=== PATIENT | female | born 1950 | race Caucasian/White ===

== ENCOUNTER 2021-05-23 14:47 | Inpatient (IN) | payer BC, MEDICARE, SELFPAY ==
[2021-05-23] VITALS (11 sets, daily range): BP systolic 132–157; BP diastolic 65–101; PULSE 95–122; RESP 18–32; TEMP 36.9–37.2; O2SAT 92–98; BMI 29.0; BMI 28.3
--- NOTE | 2021-05-23 15:07 | EKG12_ITS ---
Test Reason : Blood Pressure : / mmHG Vent. Rate : 105 BPM Atrial Rate : 105 BPM P-R Int : 154 ms QRS Dur : 096 ms QT Int : 348 ms P-R-T Axes : 024 012 029 degrees QTc Int : 459 ms Sinus tachycardia Septal infarct , age undetermined Abnormal ECG Confirmed by CATALINA FONG, EDILIA ([id number]), metropolitan editor JESSE MCKEON ([id number]) on 05/24/2021 11:40:37 AM Referred By: ARGELIA/CASS Confirmed By:EDILIA ARNOLD MD
--- NOTE | 2021-05-23 15:08 | EDS_ITS ---
HPI History of Present Illness Chief Complaint: Weakness Informant: patient Narrative Narrative: Patient states that since Sunday morning she has felt overall weak. She has no energy. Her appetite is down but she denies nausea vomiting or diarrhea. She states she is afraid to eat but she really cannot state why. She is coughing and bringing up some clear sputum. No blood. No chest pain. She states she is having some shortness of breath. Her big complaints are the significant decrease in energy and some mild dyspnea. No fevers or chills. She has more malaise than myalgias. She has no known exposure to Covid but also has not been vaccinated. She denies any medical conditions, medications or allergies. She lives alone at home. PFSH PFS Medical History no medical history Allergy/AdvReac Type Severity Reaction Status Date / Time No Known Allergies Allergy Verified 05/23/21 16:46 Surgical History no surgical history Social History Smoking Status: Never smoker ROS ROS ED Constitutional Constitutional ED: Reports other Details: Malaise. ; Denies fever(s) or weight loss Eyes Eyes: Denies change in vision ENT ENT ED: Reports rhinorrhea; Denies sore throat Cardiovascular Cardiovascular: Denies chest pain or palpitations Respiratory/Chest Respiratory/Chest: Reports cough, dyspnea, sputum and other Details: Clear sputum only. Gastrointestinal Gastrointestinal: Denies abdominal pain, diarrhea, nausea or vomiting Genitourinary Genitourinary ED: Denies dysuria Musculoskeletal Musculoskeletal: Denies myalgias Integumentary Denies rash Neurologic Neurologic: Denies headache(s) Endocrine Endocrinology: Denies polydipsia or polyuria Allergic/Immunologic Allergic/Immunologic ED: Denies mouth swelling or urticaria EXAM Physical Exam Const Vital Signs: 05/23/21 14:49 05/23/21 14:53 05/23/21 14:54 Temperature 98.6 F 98.6 F Temperature Source Oral Oral Pulse Rate 118 H 117 H Respiratory Rate 23 H 28 H Respiratory Effort Non-Labored Short of Breath Respiratory Pattern Tachypnea Blood Pressure 157/101 H 157/101 H Blood Pressure Mean 119 119 Pulse Ox 92 95 Oxygen Delivery Method Room Air Nasal Cannula Oxygen Flow Rate (L/min) 2 05/23/21 16:18 05/23/21 17:18 05/23/21 18:12 Temperature 98.7 F 98.8 F 98.9 F Temperature Source Temporal Temporal Temporal Pulse Rate 97 101 H 122 H Respiratory Rate 32 H 30 H 29 H Respiratory Effort Respiratory Pattern Blood Pressure 133/82 H 146/65 H 147/90 H Blood Pressure Mean 99 92 109 Pulse Ox 96 95 95 Oxygen Delivery Method Nasal Cannula Nasal Cannula Nasal Cannula Oxygen Flow Rate (L/min) 2 3 05/23/21 19:44 05/23/21 20:07 Temperature 98.9 F 98.9 F Temperature Source Oral Oral Pulse Rate 119 H 122 H Respiratory Rate 20 H 27 H Respiratory Effort Respiratory Pattern Blood Pressure 145/90 H 149/101 H Blood Pressure Mean 108 117 Pulse Ox 98 94 Oxygen Delivery Method Nasal Cannula Nasal Cannula Oxygen Flow Rate (L/min) 2 2 Positive well nourished and well developed General Appearance ED: well developed and NAD; Negative for cyanotic, diaphoretic or pallor HEENT Reports dry mucous membranes; Denies moist mucous membranes Negative for trauma Mouth ED: Yes dry mucous membranes Mouth: dry mucous membranes Eyes General Eye ED: Negative for pale conjunctiva or scleral icterus Neck no JVD Chest Wall inspection of chest normal Resp normal respiratory effort and clear to auscultation bilaterally Resp Narrative: No pain with a deep breath. No coughing while I am in the room. Effort and Inspection: Negative for pain with movement Auscultation: Negative for rales, rhonchi or wheezes Cardio regular rhythm Rate: tachycardic GI normal to inspection, nondistended, normoactive bowel sounds and non-tender Palpation: soft Back/Spine no CVA tenderness Extremity normal to inspection General Extremety ED: Negative for edema or tenderness General Extremity: Negative for edema Neuro oriented x3 Sensorium / Orientation: alert Psych mental status grossly normal Skin no rashes or lesions noted and no wounds General Skin Exam: Negative for pallor MDM MDM MDM Narrative Medical decision making narrative: Patient's CBC shows no marked abnormalities. Electrolytes did show some mildly low potassium. Lactate was okay. Troponin was normal. Her chest x-ray showed some marked infiltrative process. We did do a CTA of her chest. This showed pulmonary embolus with the likely COVID pneumonia and likely pulmonary infarct. Patient was persistently tachycardic here. Because I am concerned she may have Covid, I did not want to give her a lot of fluids. Her rapid Covid is negative but she has symptoms consistent of it. We have sent a PCR which is pending. I have talked to hospitalist about admission as she does not meet discharge criteria for pulmonary embolus. Lab Data Attestation: I reviewed the patient's lab results. Labs: Laboratory Results - last 24 hr 05/23/21 05/23/21 05/23/21 15:00 15:00 15:10 WBC 10.1 RBC 4.65 Hgb 14.4 Hct 40.3 MCV 86.7 MCH 31.0 MCHC 35.7 RDW Std Deviation 39.0 RDW Coeff of Jose 12.3 Plt Count 419 MPV 9.0 Immature Gran % (Auto) 0.600 Neut % (Auto) 85.9 H Lymph % (Auto) 7.1 L [place] % (Auto) 6.1 Eos % (Auto) 0.1 Baso % (Auto) 0.2 Absolute Neuts (auto) 8.7 H Absolute Lymphs (auto) 0.72 L Nucleated RBC % 0 Sodium 141 Potassium 3.0 L Chloride 109 H Carbon Dioxide 26.0 Anion Gap 6 BUN 28 H Creatinine 0.82 Estim Creat Clear Calc 62.56 Est GFR (MDRD) Af Amer 88 Est GFR (MDRD) Non-Af 73 BUN/Creatinine Ratio 34.3 H Glucose 141 H Lactic Acid 1.4 Calcium 8.2 L Troponin I High Sens 10 Radiography Diagnostic Testing: Clinical Impression(s) from Imaging Studies Chest X-Ray 05/23/21 15:30 IMPRESSION: Bilateral pneumonia. Electronically Signed: Osmin Bustamante MD at 15:58 EST Reading Location ID and State: [id number] / [place] Tel , Service support , Chest CTA 05/23/21 16:41 IMPRESSION: 1. Positive for pulmonary embolism in the distal descending right pulmonary artery extending into multiple segmental branches with right lower lobe pulmonary infarct. 2. Bilateral pneumonia. Commonly reported imaging features of February 01 pneumonia are present. Other processes such as influenza pneumonia and organized pneumonia as can be seen in drug toxicity and connective tissue disease can cause similar imaging pattern. Electronically Signed: Osmin Bustamante MD at 17:27 EST , ADDENDUM: 05/23/21 1747 IMPRESSION: 1. Positive for pulmonary embolism in the distal descending right pulmonary artery extending into multiple segmental branches with right lower lobe pulmonary infarct. 2. Bilateral pneumonia. Commonly reported imaging features of February 01 pneumonia are present. Other processes such as influenza pneumonia and organized pneumonia as can be seen in drug toxicity and connective tissue disease can cause similar imaging pattern. N.B. : The above Results were Read Back by Osmin Bustamante MD to Dr. Marry MD, and understanding confirmed on 05/23/2021 17:40:31 (ET). Electronically Signed: Osmin Bustamante MD at 17:27 EST , EKG Initial EKG: Comments: EKG done for weakness read by me shows sinus rhythm with tachycardic rate at 105. No ectopy. No acute ST elevation or depression. Slightly poor anterior R wave in V2. SC interval, QRS duration and QTc normal. No old for comparison. Discharge Plan Triage Chief Complaint: Weakness ED Provider: Adalid Tuttle Dx/Rx/DC Orders Clinical Impression: Pulmonary embolism, Respiratory failure with hypoxia, Pneumonia Primary Care Provider: Care Physician,No Primary Referrals: Care Physician,No Primary [Primary Care Provider] - Disposition Disposition: Acute Care Hospital [facility]
[2021-05-23 15:22] LABS: Absolute Lymphocyte Count 0.72 X10^3/uL (0.83-4.51); Absolute Neutrophil Count 8.7 X10^3/uL (2.0-7.7); Basophil# 0.02 X10^3/uL; Basophil% 0.2 % (0-1); Eosinophil# 0.01 X10^3/uL; Eosinophils% 0.1 % (0-5); Hematocrit 40.3 % (37-47); Hemoglobin 14.4 g/dL (12.0-15.0); Lymphocyte # 0.72 X10^3/ul (0.83-4.51); Lymphocyte % 7.1 % (19-41); Mean Corp Hgb Conc 35.7 g/dL (32-36); Mean Corpuscular Volume 86.7 fL (81-99); Monocyte# 0.61 X10^3/uL; Monocyte% 6.1 % (0-10); NRBC Flagged by Analyzer 0 % (0-5); Neutrophil # 8.65 X10^3/uL (2.7-7.7); Neutrophil % 85.9 % (47-70); Platelet Count 419 K/mm3 (150-450); RBC Distribution Width CV 12.3 % (11.6-14.6); Red Blood Count 4.65 M/mm3 (4.2-5.4); White Blood Count 10.1 K/mm3 (4.4-11.0)
--- NOTE | 2021-05-23 15:30 | RAD_ITS ---
STUDY: X-RAY CHEST REASON FOR EXAM: Female, 70 years old. cough TECHNIQUE: Single AP portable view of the chest. COMPARISON: None. FINDINGS: Alveolar opacities in both lung bases in the right upper lobe consistent with bilateral pneumonia. There is no demonstrated pleural abnormality. Normal size heart. Normal mediastinum and catrachita. Normal visualized pulmonary arteries. Normal visualized aortic arch and descending thoracic aorta. Normal visualized thoracic spine. Normal visualized ribs, clavicles, and shoulders. There is no demonstrated abnormality of the visualized soft tissue structures of the upper abdomen. RAD/Chest 1 View (Portable) IMPRESSION: Bilateral pneumonia. Electronically Signed: Osmin Bustamante MD at 15:58 EST ,
[2021-05-23 15:43] LABS: Lactic Acid 1.4 mmol/L (0.4-1.9)
[2021-05-23 15:44] LABS: Anion Gap 6 (5-15); BUN 28 mg/dL (7-18); BUN/Creat Ratio 34.3 RATIO (10-20); Calcium,Total 8.2 mg/dL (8.5-10.1); Chloride 109 mmol/L (98-107); Creatinine, Serum 0.82 mg/dL (0.55-1.02); EST Glomerular Filtration Rate 73 mL/min (>60); Est Glom Filt Rate - Afr Amer 88 mL/min (>60); Estimated Creatinine Clearance 62.56 ml/min; Glucose 141 mg/dL (74-106); Sodium Level 141 mmol/L (136-145); Troponin-I HS 10 pg/mL (3.0-54.0)
--- NOTE | 2021-05-23 16:41 | CT_ITS ---
We are attempting to reach an attending provider to discuss findings. An addendum with communication details will be sent when the communication is complete. STUDY: CTA CHEST REASON FOR EXAM: Female, 70 years old. PE RADIATION DOSAGE (If Supplied By Facility): CTDIvol = ( 10.41 ) mGy, DLP = ( 489.95 ) mGycm TECHNIQUE: The examination was performed with the intravenous administration of IV 100mL Isovue-370. Post-processing of the angiographic images was performed, with multiplanar reformation and 3D reconstruction. Individualized dose optimization techniques were used for this CT. COMPARISON: 05/23/2021 FINDINGS: Normal enhancement of the main pulmonary artery and right and left pulmonary arteries. Normal enhancement of the bilateral peripheral pulmonary arteries. Filling defect within the distal descending right pulmonary artery extending to multiple multiple segmental branches consistent with pulmonary embolism. Alveolar density in the right lower lobe demonstrates decreased contrast enhancement consistent with an infarct. Normal thoracic aorta and visualized great vessels. There is no demonstrated aortic dissection. Normal heart and pericardium. Normal mediastinum. Normal hilar regions. Normal visualized trachea and bronchi. The lungs are well expanded. Patchy alveolar groundglass opacities in both lungs consistent with bilateral pneumonia. Normal pleura. Normal chest wall structures. Prominent hemangioma of the T11 vertebral body. Normal visualized upper abdomen. CT/CTA Chest W/WO Contrast IMPRESSION: 1. Positive for pulmonary embolism in the distal descending right pulmonary artery extending into multiple segmental branches with right lower lobe pulmonary infarct. 2. Bilateral pneumonia. Commonly reported imaging features of February 01 pneumonia are present. Other processes such as influenza pneumonia and organized pneumonia as can be seen in drug toxicity and connective tissue disease can cause similar imaging pattern. Electronically Signed: Osmin Bustamante MD at 17:27 EST ,
[2021-05-23] MEDS: APIXABAN 5 MG TABLET 10 MG PO (18:15)
--- NOTE | 2021-05-23 20:06 | HP.PCM_ITS ---
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 Patient denies nausea, vomiting, chest pain, fever, chills. Patient states that she has no medical history and does not currently take any medications nor does she have any allergies to any medications. Patient reports that she has not been around anyone ill however she has not been vaccinated against COVID-19. Patient rapid antigen for COVID-19 negative in the ER, PCR ordered. [facility] Medical History no medical history no medical history Allergy/AdvReac Type Severity Reaction Status Date / Time No Known Allergies Allergy Verified 05/23/21 16:46 Surgical History no surgical history no surgical history Social History Smoking Status: Never smoker ROS Constitutional Constitutional: Reports body ache(s), malaise, poor appetite and weakness; Denies anorexia, chills, fatigue or fever(s) Cardiovascular Cardiovascular: Denies chest pain, edema, palpitations or syncope Respiratory/Chest Respiratory/Chest: Reports productive cough, shortness of breath at rest and shortness of breath with exertion Gastrointestinal Gastrointestinal: Denies abdominal pain, constipation, diarrhea, nausea or vomiting Genitourinary Genitourinary: Denies dysuria Musculoskeletal Musculoskeletal: Denies back pain, extremity pain, joint pain or joint stiffness Integumentary Integumentary: Denies dry skin Neurologic Neurologic: Denies abnormal gait, abnormal speech, confusion, dizziness or focal weakness Psychiatric Psychiatric: Denies anxiety or depression Endocrine Endocrinology: Denies change in body appearance Hematologic/Lymphatic Hematologic/Lymphatic: Denies anemia, easy bleeding or easy bruising Vital Signs Vital Signs Vital Signs: 05/23/21 14:49 05/23/21 14:53 05/23/21 14:54 Temperature 98.6 F 98.6 F Temperature Source Oral Oral Pulse Rate 118 H 117 H Respiratory Rate 23 H 28 H Respiratory Effort Non-Labored Short of Breath Respiratory Pattern Tachypnea Blood Pressure 157/101 H 157/101 H Blood Pressure Mean 119 119 Pulse Ox 92 95 Oxygen Delivery Method Room Air Nasal Cannula Oxygen Flow Rate (L/min) 2 05/23/21 16:18 05/23/21 17:18 05/23/21 18:12 Temperature 98.7 F 98.8 F 98.9 F Temperature Source Temporal Temporal Temporal Pulse Rate 97 101 H 122 H Respiratory Rate 32 H 30 H 29 H Respiratory Effort Respiratory Pattern Blood Pressure 133/82 H 146/65 H 147/90 H Blood Pressure Mean 99 92 109 Pulse Ox 96 95 95 Oxygen Delivery Method Nasal Cannula Nasal Cannula Nasal Cannula Oxygen Flow Rate (L/min) 2 3 05/23/21 19:44 Temperature 98.9 F Temperature Source Oral Pulse Rate 119 H Respiratory Rate 20 H Respiratory Effort Respiratory Pattern Blood Pressure 145/90 H Blood Pressure Mean 108 Pulse Ox 98 Oxygen Delivery Method Nasal Cannula Oxygen Flow Rate (L/min) 2 Weight Weight: 191 lb 2.252 oz Body Mass Index (BMI) 29.0 Physical Exam Const alert, oriented x3 and no apparent distress General Appearance: cooperative HEENT normocephalic and head/scalp atraumatic Eyes conjunctivae normal and no scleral icterus Neck no lymphadenopathy and supple General: trachea midline Resp normal respiratory effort and normal air movement Effort and Inspection: able to speak in complete sentences, symmetric chest movement and tachypneic Cardio regular rate, regular rhythm, S1 normal heart sound, S2 normal heart sound and peripheral pulses 2+ throughout Rate: tachycardic GI normal to inspection, nondistended, normoactive bowel sounds, soft to palpation and non-tender Extremity normal capillary refill and no clubbing, cyanosis or edema General Extremity: no tenderness to palpation of joints or extremities Skin General Skin Exam: no breakdown and turgor normal Lesions: no lesions Rashes: no rashes Neuro no focal motor deficits and no sensory deficits noted Speech: speech normal Motor Exam: general weakness Psych thought process normal, cooperative and affect normal Appearance: appropriate Results Lab / Micro Data Result Diagrams: 05/24/21 04:50 05/24/21 04:50 Labs: Laboratory Results - last 24 hr 05/23/21 15:00: WBC 10.1, RBC 4.65, Hgb 14.4, Hct 40.3, MCV 86.7, MCH 31.0, MCHC 35.7, RDW Std Deviation 39.0, RDW Coeff of Jose 12.3, Plt Count 419, MPV 9.0, Immature Gran % (Auto) 0.600, Neut % (Auto) 85.9 H, Lymph % (Auto) 7.1 L, [place] % (Auto) 6.1, Eos % (Auto) 0.1, Baso % (Auto) 0.2, Absolute Neuts (auto) 8.7 H, Absolute Lymphs (auto) 0.72 L, Nucleated RBC % 0 05/23/21 15:00: Sodium 141, Potassium 3.0 L, Chloride 109 H, Carbon Dioxide 26.0, Anion Gap 6, BUN 28 H, Creatinine 0.82, Estim Creat Clear Calc 62.56, Est GFR (MDRD) Af Amer 88, Est GFR (MDRD) Non-Af 73, BUN/Creatinine Ratio 34.3 H, Glucose 141 H, Calcium 8.2 L, Troponin I High Sens 10 05/23/21 15:10: Lactic Acid 1.4 Micro: Microbiology 05/23/21 16:10 Mucosa - Nasopharyngeal Influenza Types A,B Direct FA (JANNET) - Final 05/23/21 15:00 Nasal Secretion SARS-CoV-2 Antigen (Rapid) - Final Radiology Impression Chest X-Ray 05/23/21 15:30 IMPRESSION: Bilateral pneumonia. Electronically Signed: Osmin Bustamante MD at 15:58 EST , Chest CTA 05/23/21 16:41 IMPRESSION: 1. Positive for pulmonary embolism in the distal descending right pulmonary artery extending into multiple segmental branches with right lower lobe pulmonary infarct. 2. Bilateral pneumonia. Commonly reported imaging features of February 01 pneumonia are present. Other processes such as influenza pneumonia and organized pneumonia as can be seen in drug toxicity and connective tissue disease can cause similar imaging pattern. Electronically Signed: Osmin Bustamante MD at 17:27 EST , ADDENDUM: 05/23/21 1747 IMPRESSION: 1. Positive for pulmonary embolism in the distal descending right pulmonary artery extending into multiple segmental branches with right lower lobe pulmonary infarct. 2. Bilateral pneumonia. Commonly reported imaging features of February 01 pneumonia are present. Other processes such as influenza pneumonia and organized pneumonia as can be seen in drug toxicity and connective tissue disease can cause similar imaging pattern. N.B. : The above Results were Read Back by Osmin Bustamante MD to Dr. Marry MD, and understanding confirmed on 05/23/2021 17:40:31 (ET). Electronically Signed: Osmin Bustamante MD at 17:27 EST , Assessment & Plan Assessment/Plan (1) Pulmonary embolism: QUALIFIERS: Acute cor pulmonale presence: unspecified Chronicity: acute Pulmonary embolism type: unspecified Qualified Code(s): I26.99 - Other pulmonary embolism without acute cor pulmonale (2) Respiratory failure with hypoxia: QUALIFIERS: Chronicity: acute Qualified Code(s): J96.01 - Acute respiratory failure with hypoxia (3) Pneumonia: QUALIFIERS: Laterality: bilateral Lung location: lower lobe of lung Pneumonia type: due to unspecified organism Qualified Code(s): J18.9 - Pneumonia, unspecified organism PLAN: 1. Acute respiratory failure with hypoxia, multifactorial -Patient CT positive for pulmonary embolism as well as bilateral pulmonary infiltrates -Admit to PCU for cardiac monitoring -Covid antigen and influenza A and B negative, Covid PCR pending. If patient is Covid positive will continue with p.o. Decadron as ordered, patient refused remdesivir at this time. If Covid PCR is negative will initiate patient on IV antibiotics and transition from Decadron to Solu-Medrol. -Scheduled DuoNeb and as needed albuterol nebulizer treatments ordered -Patient initiated on Eliquis in ER for pulmonary embolism, will continue -PT and OT to eval and treat for generalized weakness -Oxygen therapy per protocol, patient currently on 3 L nasal cannula oxygen -CBC and BMP ordered daily -Blood cultures pending 2. Hypokalemia -Potassium 3.0, potassium chloride 60 mEq p.o. x1 ordered -Daily BMP DVT prophylaxis-Eliquis initiated This patient was seen by FAIZAN Oliver under the supervision of Dr. Sabillon. 28 minutes spent in clinical coordination of patient's plan of care. Documented by User: Dr. Joel Sabillon MD 05/24/21 06:22 HPI - General General Date of Admission: 05/23/21 [facility] Medical History no medical history Allergy/AdvReac Type Severity Reaction Status Date / Time No Known Allergies Allergy Verified 05/23/21 16:46 Surgical History no surgical history Social History Smoking Status: Never smoker Results Lab / Micro Data Result Diagrams: 05/24/21 04:50 05/24/21 04:50 Charges/Coding Addendum Addendum: Patient seen and examined independently by myself and agree with above assessment and plan.
--- NOTE | 2021-05-23 20:17 | CM.ED ---
RN CM Assessment Introduced role of RN CM to patient and patient sister Mariel Mclaughlin at bedside. Patient is alert, oriented and able to participate in RN CM Assessment. Care providers, pharmacy, and demographics verified. Admit Dx: PNA, PE Re-Admit: No Barriers/Issues: None PCP: None. PCP list provided. Specialists: None Preferred Pharmacy: [facility] Insurance: [employer] Plan, [place] A only Rx Benefit: Yes LNOK: Sister Mariel Mclaughlin LW/HPOA: Has LW, HPOA- sister Mariel Aguirre Living Arrangements: Lives alone in a [place] home, 2 steps to enter home. ADL?s: Independent with ambulation and ADLs. Patient still works. Transportation: Patient drives DME: None HHC: None SNF: None Goal: Home and does not think will have any needs, concerns, or issues with going home. DC PLAN: Home with possible need for anticoagulation card. F/u mobility for possible Outpatient PT need and F/u O2 for possible Oxygen. Patient w/O2 sat 92-93%ra prior to being placed on 2lpm. F/u Covid Pcr result. SHAN FelderCM
[2021-05-23] MEDS: Potassium Chloride Oral Tablet 20 MEQ 60 MEQ PO (21:44)
[2021-05-23] MEDS: 0.9% Saline Lock 10 ML Syringe IV (22:12)
[2021-05-24] VITALS (16 sets, daily range): BP systolic 134–146; BP diastolic 67–104; PULSE 92–116; RESP 16–24; TEMP 36.3–36.9; O2SAT 90–95
[2021-05-24] MEDS: 0.9% Saline Lock 10 ML Syringe IV ×2 (05:17→12:49)
[2021-05-24 05:26] LABS: Absolute Neutrophil Count 9.9 X10^3/uL (2.0-7.7); Basophil# 0.01 X10^3/uL; Basophil% 0.1 % (0-1); Hematocrit 40.4 % (37-47); Hemoglobin 13.6 g/dL (12.0-15.0); Lymphocyte % 5.6 % (19-41); Mean Corp Hgb Conc 33.7 g/dL (32-36); Mean Platelet Vol. 9.2 fl (6.2-12.0); Monocyte# 0.13 X10^3/uL; Monocyte% 1.2 % (0-10); NRBC Flagged by Analyzer 0 % (0-5); Neutrophil # 9.89 X10^3/uL (2.7-7.7); Neutrophil % 92.4 % (47-70); POSITIVE DIFFERENTIAL YES; Platelet Count 399 K/mm3 (150-450); RBC Distribution Width CV 12.5 % (11.6-14.6); RBC Distribution Width SD 40.9 fl (35.1-43.9); Red Blood Count 4.54 M/mm3 (4.2-5.4); White Blood Count 10.7 K/mm3 (4.4-11.0)
[2021-05-24 05:37] LABS: Differential Indicated SCAN CRITERIA MET
[2021-05-24 05:59] LABS: Anion Gap 7 (5-15); BUN 27 mg/dL (7-18); Calcium,Total 8.2 mg/dL (8.5-10.1); Chloride 108 mmol/L (98-107); Creatinine, Serum 0.84 mg/dL (0.55-1.02); EST Glomerular Filtration Rate 70 mL/min (>60); Est Glom Filt Rate - Afr Amer 85 mL/min (>60); Estimated Creatinine Clearance 61.07 ml/min; Glucose 197 mg/dL (74-106); Potassium 4.2 mmol/L (3.5-5.1); Sodium Level 139 mmol/L (136-145)
[2021-05-24] MEDS: Ipratropium/Albuterol Sulfate 3 ML AMPUL.NEB INHALATION ×3 (07:14→20:06)
[2021-05-24] MEDS: APIXABAN 5 MG TABLET 10 MG PO ×2 (09:39→22:37)
[2021-05-24] MEDS: guaiFENesin 1,200 MG Tablet 1200 MG PO ×2 (09:39→22:37)
--- NOTE | 2021-05-24 10:27 | PCM.CONS.GEN ---
Assessment & Plan Assessment/Plan (1) Respiratory failure with hypoxia: QUALIFIERS: Chronicity: acute Qualified Code(s): J96.01 - Acute respiratory failure with hypoxia PLAN: Sx started 05/18/21. Unvaccinated for covid but open to getting the shots. Covid Ag and PCR here, but does have PE, cough, lymphopenia. Given lack of associated symptoms and rapid improvement, overall lower suspicion for covid. Will do full resp viral panel if available. On azithro, anticoag, and solumedrol. Covid Abs pending as well. Cont current abx. Will follow, thank you (2) Pulmonary embolism: QUALIFIERS: Pulmonary embolism type: unspecified Chronicity: acute Acute cor pulmonale presence: unspecified Qualified Code(s): I26.99 - Other pulmonary embolism without acute cor pulmonale HPI Consult Data Date of Consult: 05/24/21 HPI Narrative HPI Narrative: CRYSTAL MOORE, is a 70 F who presented 05/23 with 5 days of cough, clear sputum. No fever, no headache, no change in taste/smell, no sore throat, no n/v/d, no aches. Mild fatigue. No sick contacts, lives alone, goes to work. Unvaccinated for covid. No long trips recently, no trauma to legs, no h/o DVT. Came to ED, found to have pneumonia and PE. Admitted on solumedrol and azithro. Feeling a lot better this AM. Full ROS performed and neg except as noted above. PFSH Medical History no medical history Allergy/AdvReac Type Severity Reaction Status Date / Time No Known Allergies Allergy Verified 05/23/21 16:46 Surgical History no surgical history Social History Smoking Status: Never smoker Physical Exam Const alert, oriented x3 and no apparent distress General Appearance: cooperative HEENT normocephalic and head/scalp atraumatic Eyes PERRL and EOMs intact bilaterally Neck supple and No nodes Resp normal air movement and clear to auscultation bilaterally Cardio regular rate and regular rhythm GI normal to inspection, nondistended, normoactive bowel sounds Extremity no clubbing, cyanosis or edema Skin no rashes or lesions noted Neuro CN's II-XII intact bilaterally Lab / Micro Data Result Diagrams: 05/24/21 04:50 05/24/21 04:50 Labs: Laboratory Results - last 24 hr 05/23/21 15:00: WBC 10.1, RBC 4.65, Hgb 14.4, Hct 40.3, MCV 86.7, MCH 31.0, MCHC 35.7, RDW Std Deviation 39.0, RDW Coeff of Jose 12.3, Plt Count 419, MPV 9.0, Immature Gran % (Auto) 0.600, Neut % (Auto) 85.9 H, Lymph % (Auto) 7.1 L, Lane % (Auto) 6.1, Eos % (Auto) 0.1, Baso % (Auto) 0.2, Absolute Neuts (auto) 8.7 H, Absolute Lymphs (auto) 0.72 L, Nucleated RBC % 0 05/23/21 15:00: Sodium 141, Potassium 3.0 L, Chloride 109 H, Carbon Dioxide 26.0, Anion Gap 6, BUN 28 H, Creatinine 0.82, Estim Creat Clear Calc 62.56, Est GFR (MDRD) Af Amer 88, Est GFR (MDRD) Non-Af 73, BUN/Creatinine Ratio 34.3 H, Glucose 141 H, Calcium 8.2 L, Troponin I High Sens 10 05/23/21 15:10: Lactic Acid 1.4 05/23/21 17:10: COVID-19 ([place]) Not Detected 05/24/21 04:50: WBC 10.7, RBC 4.54, Hgb 13.6, Hct 40.4, MCV 89.0, MCH 30.0, MCHC 33.7 D, RDW Std Deviation 40.9, RDW Coeff of Jsoe 12.5, Plt Count 399, MPV 9.2, Immature Gran % (Auto) 0.700, Neut % (Auto) 92.4 H, Lymph % (Auto) 5.6 L, Lane % (Auto) 1.2, Eos % (Auto) 0.0, Baso % (Auto) 0.1, Absolute Neuts (auto) 9.9 H, Absolute Lymphs (auto) 0.60 L, Nucleated RBC % 0 05/24/21 04:50: Sodium 139, Potassium 4.2, Chloride 108 H, Carbon Dioxide 24.0, Anion Gap 7, BUN 27 H, Creatinine 0.84, Estim Creat Clear Calc 61.07, Est GFR (MDRD) Af Amer 85, Est GFR (MDRD) Non-Af 70, BUN/Creatinine Ratio 32.0 H, Glucose 197 H, Calcium 8.2 L Micro: Microbiology 05/23/21 16:10 Mucosa - Nasopharyngeal Influenza Types A,B Direct FA (JANNET) - Final 05/23/21 15:00 Nasal Secretion SARS-CoV-2 Antigen (Rapid) - Final Radiology Impression Chest X-Ray 05/23/21 15:30 IMPRESSION: Bilateral pneumonia. Electronically Signed: Osmin Bustamante MD at 15:58 EST Reading Location ID and State: [id number] / [employer] , Service support , Chest CTA 05/23/21 16:41 IMPRESSION: 1. Positive for pulmonary embolism in the distal descending right pulmonary artery extending into multiple segmental branches with right lower lobe pulmonary infarct. 2. Bilateral pneumonia. Commonly reported imaging features of February 01 pneumonia are present. Other processes such as influenza pneumonia and organized pneumonia as can be seen in drug toxicity and connective tissue disease can cause similar imaging pattern. Electronically Signed: Osmin Bustamante MD at 17:27 EST Reading Location ID and State: [id number] / [employer] , Service support , ADDENDUM: 05/23/21 1747 IMPRESSION: 1. Positive for pulmonary embolism in the distal descending right pulmonary artery extending into multiple segmental branches with right lower lobe pulmonary infarct. 2. Bilateral pneumonia. Commonly reported imaging features of February 01 pneumonia are present. Other processes such as influenza pneumonia and organized pneumonia as can be seen in drug toxicity and connective tissue disease can cause similar imaging pattern. N.B. : The above Results were Read Back by Osmin Bustamante MD to Dr. Marry MD, and understanding confirmed on 05/23/2021 17:40:31 (ET). Electronically Signed: Osmin Bustamante MD at 17:27 EST Reading Location ID and State: [id number] / [employer] , Service support ,
--- NOTE | 2021-05-24 15:04 | PCM.PN.HOSP ---
Documented by User: Scot MCCAULEY 05/24/21 15:20 Subjective Subjective Patient is a 70-year-old female comfortably resting in bed, alert and orient x3. Patient denies any chest pain or shortness of breath or development of any new symptoms overnight. Does not appear in acute distress. Objective Data Objective Data Vital Signs: Vital Signs Temp Pulse Resp BP Pulse Ox 97.8 F 115 H 20 H 146/67 H 93 05/24/21 14:06 05/24/21 14:06 05/24/21 14:06 05/24/21 14:06 05/24/21 14:14 Oxygen Flow Rate (L/min) 2 Oxygen Delivery Method Room Air Weight: 186 lb 4.65 oz Body Mass Index (BMI) 28.3 Intake & Output: Intake and Output for Last 24 Hours 05/22/21 05/23/21 05/24/21 23:59 23:59 23:59 Intake Total 229.42 / 229.42 674.75 / 674.75 Balance 229.42 / 229.42 674.75 / 674.75 Lab / Micro Data Result Diagrams: 05/24/21 04:50 05/24/21 04:50 Labs: Laboratory Results - last 24 hr 05/23/21 15:00: WBC 10.1, RBC 4.65, Hgb 14.4, Hct 40.3, MCV 86.7, MCH 31.0, MCHC 35.7, RDW Std Deviation 39.0, RDW Coeff of Jose 12.3, Plt Count 419, MPV 9.0, Immature Gran % (Auto) 0.600, Neut % (Auto) 85.9 H, Lymph % (Auto) 7.1 L, [place] % (Auto) 6.1, Eos % (Auto) 0.1, Baso % (Auto) 0.2, Absolute Neuts (auto) 8.7 H, Absolute Lymphs (auto) 0.72 L, Nucleated RBC % 0 05/23/21 15:00: Sodium 141, Potassium 3.0 L, Chloride 109 H, Carbon Dioxide 26.0, Anion Gap 6, BUN 28 H, Creatinine 0.82, Estim Creat Clear Calc 62.56, Est GFR (MDRD) Af Amer 88, Est GFR (MDRD) Non-Af 73, BUN/Creatinine Ratio 34.3 H, Glucose 141 H, Calcium 8.2 L, Troponin I High Sens 10 05/23/21 15:10: Lactic Acid 1.4 05/23/21 17:10: COVID-19 ([place]) Not Detected 05/24/21 04:50: WBC 10.7, RBC 4.54, Hgb 13.6, Hct 40.4, MCV 89.0, MCH 30.0, MCHC 33.7 D, RDW Std Deviation 40.9, RDW Coeff of Jose 12.5, Plt Count 399, MPV 9.2, Immature Gran % (Auto) 0.700, Neut % (Auto) 92.4 H, Lymph % (Auto) 5.6 L, [place] % (Auto) 1.2, Eos % (Auto) 0.0, Baso % (Auto) 0.1, Absolute Neuts (auto) 9.9 H, Absolute Lymphs (auto) 0.60 L, Nucleated RBC % 0 05/24/21 04:50: Sodium 139, Potassium 4.2, Chloride 108 H, Carbon Dioxide 24.0, Anion Gap 7, BUN 27 H, Creatinine 0.84, Estim Creat Clear Calc 61.07, Est GFR (MDRD) Af Amer 85, Est GFR (MDRD) Non-Af 70, BUN/Creatinine Ratio 32.0 H, Glucose 197 H, Calcium 8.2 L 05/24/21 09:25: SARS-CoV-2 IgG Ab 73.44 H Micro: Microbiology 05/24/21 11:22 Mucosa - Nose Respiratory Panel (PCR) - Final 05/24/21 11:30 Urine, Clean Catch Legionella Antigen - Final 05/24/21 11:30 Urine, Clean Catch Streptococcus pneumoniae Antigen (M - Final 05/23/21 16:10 Mucosa - Nasopharyngeal Influenza Types A,B Direct FA (JANNET) - Final 05/23/21 15:00 Nasal Secretion SARS-CoV-2 Antigen (Rapid) - Final Radiography Diagnostic Testing: Radiology Impression Chest X-Ray 05/23/21 15:30 IMPRESSION: Bilateral pneumonia. Electronically Signed: Osmin Bustamante MD at 15:58 EST , Chest CTA 05/23/21 16:41 IMPRESSION: 1. Positive for pulmonary embolism in the distal descending right pulmonary artery extending into multiple segmental branches with right lower lobe pulmonary infarct. 2. Bilateral pneumonia. Commonly reported imaging features of February 01 pneumonia are present. Other processes such as influenza pneumonia and organized pneumonia as can be seen in drug toxicity and connective tissue disease can cause similar imaging pattern. Electronically Signed: Osmin Bustamante MD at 17:27 EST , ADDENDUM: 05/23/21 1747 IMPRESSION: 1. Positive for pulmonary embolism in the distal descending right pulmonary artery extending into multiple segmental branches with right lower lobe pulmonary infarct. 2. Bilateral pneumonia. Commonly reported imaging features of February 01 pneumonia are present. Other processes such as influenza pneumonia and organized pneumonia as can be seen in drug toxicity and connective tissue disease can cause similar imaging pattern. N.B. : The above Results were Read Back by Osmin Bustamante MD to Dr. Marry MD, and understanding confirmed on 05/23/2021 17:40:31 (ET). Electronically Signed: Osmin Bustamante MD at 17:27 EST , Physical Exam Const alert, oriented x3 and no apparent distress HEENT head/scalp atraumatic Head and Scalp: normocephalic Eyes PERRL Neck no lymphadenopathy and no JVD Resp normal respiratory effort, no retractions and no use of accessory muscles Cardio regular rate, regular rhythm and no JVD GI normal to inspection, nondistended, normoactive bowel sounds Extremity normal to inspection Skin no rashes or lesions noted Neuro CN's II-XII intact bilaterally Psych affect normal Assessment & Plan Assessment/Plan (1) Pneumonia: QUALIFIERS: Laterality: bilateral Lung location: lower lobe of lung Pneumonia type: due to unspecified organism Qualified Code(s): J18.9 - Pneumonia, unspecified organism (2) Respiratory failure with hypoxia: QUALIFIERS: Chronicity: acute Qualified Code(s): J96.01 - Acute respiratory failure with hypoxia (3) Pulmonary embolism: QUALIFIERS: Acute cor pulmonale presence: unspecified Chronicity: acute Pulmonary embolism type: unspecified Qualified Code(s): I26.99 - Other pulmonary embolism without acute cor pulmonale PLAN: Day 1 Discharge planning: Current plan is for patient to discharge home when medically ready. 1) acute hypoxic respiratory failure secondary to bilateral PE and Pneumonia. CT on admission demonstrated pulmonary embolism as well as bilateral pulmonary infiltrates, CT also concerning for possible groundglass opacities or fibrotic changes. Covid PCR negative, Legionella and strep pneumo urinary antigens negative, influenza panel negative, viral respiratory panel negative. Covid antibodies ordered. ID consulted, continue antibiotics, continue steroids, wean oxygen as tolerated, continue breathing treatments, continue therapeutic Eliquis. 2) hypokalemia Resolved, potassium currently 4.2. We'll continue to monitor. DVT prophylaxis -not indicated, therapeutic Eliquis initiated. Patient seen by Scot Barnes PA-C, under the supervision of Dr. Snyder. Documented by User: Dr. Chuck Snyder MD 05/24/21 16:47 Subjective Subjective Patient admitted with URI symptoms of cough clearish sputum, generalized malaise, fatigue for 5 days. Not Covid vaccinated. Rapid antigen and PCR negative. Right main pulmonary artery PE with extension to segmental branches. No prior history of PE or thromboembolic disease Objective Data Lab / Micro Data Result Diagrams: 05/24/21 04:50 05/24/21 04:50 Physical Exam Narrative General: Alert, Oriented x3, Cooperative HEENT: Atraumatic, PERRLA, EOMI, Normocephalic Oral: No Gingival or Mucosal Lesions/ Ulcerations Neck: Supple, No JVD, Negative Carotid Bruits Lungs: Air entry diminished in bilateral lung bases. Mild bibasilar crepitations. No hypoxia Cardiovascular: Sinus tachycardia, Normal S1, Normal S2, No murmurs Abdomen: Bowel Sounds Present, Soft, Non Tender, Non-Distended : No renal angle tenderness. No suprapubic tenderness. Extremities: No edema, Capillary Refill Less than 3 Seconds Skin: No rashes, No breakdown Musculoskeletal: No Tenderness to Palpation of Joints or Extremities Neurological: Cranial nerves II-XII grossly intact, DTR 2+/4 and Symmetrical, Neuro grossly intact Psych/Mental Status: Normal Affect, Appropriate. Assessment & Plan Assessment/Plan (1) Respiratory failure with hypoxia: QUALIFIERS: Chronicity: acute Qualified Code(s): J96.01 - Acute respiratory failure with hypoxia (2) Pulmonary embolism: QUALIFIERS: Acute cor pulmonale presence: unspecified Chronicity: acute Pulmonary embolism type: unspecified Qualified Code(s): I26.99 - Other pulmonary embolism without acute cor pulmonale PLAN: This patient was seen in conjunction with PARISA Horvath. I have independently interviewed and examined the patient and reviewed pertinent history, examination findings, laboratory and plan of management. I have reviewed the note and agree with the documented findings with the few additional points. In brief, patient is admitted for 5 days symptoms of cough, clear sputum and malaise and chest x-ray CT findings suggestive of bilateral lower lobe pneumonia and right main pulmonary artery embolism with segmental extension. Patient is on therapeutic dose of apixaban. Empirically on azithromycin. Rapid COVID-19 antigen, PCR, urinary antigens, influenza panel and viral respiratory panel are negative. ID consult appreciated. SARS-CoV-2 IgG elevated. IgM pending. Solu-Medrol changed to dexamethasone. Patient denies history of smoking, chronic lung disease including COPD, emphysema, asthma, interstitial lung disease or prior pneumonia. Mild hypokalemia, potassium replaced Total time of the visit includes total time spent in counseling or coordination of care, (more than 50% of the total time, spent in obtaining medical information from nurses and other ancillary care providers,explaining to the patient about labs, imaging, diagnosis and management), discussion with group segment consultant, review of labs and imaging is 30 minutes; I spent 18 minutes, more than half time and PA spent 12 minutes I have discussed my assessment with PARISA Horvath and orders have been reviewed. Charges/Coding Visit Charges Inpatient E&M: 23778 Subs Hosp L2
[2021-05-24 17:40] LABS: BNP,B-Type NATRIURETIC PEPTIDE 50.3 pg/mL (0-100)
[2021-05-25] VITALS (7 sets, daily range): BP systolic 146–155; BP diastolic 86–94; PULSE 86–116; RESP 16–20; TEMP 36.1–36.6; O2SAT 90–94
[2021-05-25 06:18] LABS: Absolute Lymphocyte Count 1.21 X10^3/uL (0.83-4.51); Absolute Neutrophil Count 11.7 X10^3/uL (2.0-7.7); Basophil# 0.01 X10^3/uL; Basophil% 0.1 % (0-1); Hematocrit 39.4 % (37-47); Hemoglobin 13.5 g/dL (12.0-15.0); Lymphocyte # 1.21 X10^3/ul (0.83-4.51); Lymphocyte % 8.8 % (19-41); Mean Corp Hgb Conc 34.3 g/dL (32-36); Mean Corpuscular Hgb 30.7 pg (27.0-32.0); Mean Corpuscular Volume 89.5 fL (81-99); Mean Platelet Vol. 9.2 fl (6.2-12.0); Monocyte# 0.76 X10^3/uL; Monocyte% 5.5 % (0-10); NRBC Flagged by Analyzer 0 % (0-5); Neutrophil # 11.74 X10^3/uL (2.7-7.7); Neutrophil % 84.9 % (47-70); Platelet Count 408 K/mm3 (150-450); RBC Distribution Width CV 12.5 % (11.6-14.6); RBC Distribution Width SD 41.1 fl (35.1-43.9); White Blood Count 13.8 K/mm3 (4.4-11.0)
[2021-05-25 06:46] LABS: Anion Gap 5 (5-15); BUN 27 mg/dL (7-18); BUN/Creat Ratio 43.2 RATIO (10-20); Calcium,Total 8.2 mg/dL (8.5-10.1); Chloride 108 mmol/L (98-107); Creatinine, Serum 0.62 mg/dL (0.55-1.02); EST Glomerular Filtration Rate 99 mL/min (>60); Est Glom Filt Rate - Afr Amer 120 mL/min (>60); Glucose 104 mg/dL (74-106); Sodium Level 140 mmol/L (136-145)
[2021-05-25] MEDS: Ipratropium/Albuterol Sulfate 3 ML AMPUL.NEB INHALATION (07:24)
[2021-05-25] MEDS: dexAMETHasone 4 MG Tablet 6 MG PO (08:09)
[2021-05-25] MEDS: guaiFENesin 1,200 MG Tablet 1200 MG PO (08:10)
[2021-05-25] MEDS: APIXABAN 5 MG TABLET 10 MG PO (08:10)
--- NOTE | 2021-05-25 11:00 | CASEMGMT ---
Addendum entered by Thao Meyers 05/25/21 14:11: Pt states does not have pulse ox at home but is updated on getting one and keeping sats greater than 89%, voices understanding. Roselia TORREZ CM Addendum entered by Thao Meyers 05/25/21 14:04: Per Katharina in [facility], pt's co-pay for Eliquis is $396, which most is most likely deductible, and Eliquis 30 day free trial card applied. Pt updated, voices understanding. Pt voices no further questions/concerns/needs. Roselia TORREZ CM Original Note: Per Kassie TORREZ, pt does not qualify for home oxygen at discharge. CM to follow for Eliquis coverage/co-pay. Roselia TORREZ CM
--- NOTE | 2021-05-25 11:05 | EKG12_ITS ---
Test Reason : Blood Pressure : / mmHG Vent. Rate : 106 BPM Atrial Rate : 106 BPM P-R Int : 158 ms QRS Dur : 092 ms QT Int : 332 ms P-R-T Axes : 023 009 031 degrees QTc Int : 441 ms Sinus tachycardia with Premature atrial complexes Septal infarct (cited on or before 23-MAY-2021) Abnormal ECG Confirmed by CATALINA FONG, EDILIA ([id number]), content editor JESSE MCKEON ([id number]) on 05/27/2021 11:08:08 AM Referred By: MARÍA ELENA Confirmed By:EDILIA ARNOLD MD
[2021-05-25 12:14] LABS: Troponin-I HS 9 pg/mL (3.0-54.0)
[2021-05-25 12:47] LABS: Troponin-I HS 11 pg/mL (3.0-54.0)
--- NOTE | 2021-05-25 13:18 | PCM.PN.ID ---
Physical Exam Narrative Feeling better, still some dyspnea, no fever Const alert General Appearance: cooperative Resp normal air movement and clear to auscultation bilaterally Cardio regular rate and regular rhythm GI soft to palpation, non-tender and non-distended Skin no rashes or lesions noted ID ID: Route of nutrition/ use of supplements: [] Nutritional Intake: [] IV Site: [] Swartz Catheter: [] Assessment & Plan Assessment/Plan (1) Respiratory failure with hypoxia: QUALIFIERS: Chronicity: acute Qualified Code(s): J96.01 - Acute respiratory failure with hypoxia PLAN: Sx started 05/18/21. Unvaccinated for covid but open to getting the shots. Covid Ag and PCR here, but does have PE, cough, lymphopenia. Given lack of associated symptoms and rapid improvement, overall lower suspicion for covid. On azithro, anticoag, and dex. Covid IgG was (+), IgM pending. Now on room air. Ok for home to complete 5 days total azithro. Would recommend covid shot in one month. Will follow, d/w Dr. Snyder (2) Pulmonary embolism: QUALIFIERS: Pulmonary embolism type: unspecified Chronicity: acute Acute cor pulmonale presence: unspecified Qualified Code(s): I26.99 - Other pulmonary embolism without acute cor pulmonale
--- NOTE | 2021-05-25 13:28 | PCM.DC ---
Discharge Instructions Diet Discharge Diet: No restrictions Activity Discharge Activity: Return to Normal Activity Weight Bearing Status: Weight bearing as tolerated Dressing / Incision Call your doctor if you observe: Fever of 101 or Higher, Numbness or Tingling, Shortness of breath, Dizziness, Chest pain, Increased palpitations (irregular heartbeat) and Calf discomfort Follow Up Care Please Follow Up With: Primary care provider When: Within the next two weeks. Test Results: Test results from this visit will be discussed in further detail at your follow-up appointment, if applicable. Discharge Plan Admission Admit Date/Time: 05/24/21 13:29 Primary Reason for Your Visit: Shortness of breath Attending Provider: Chuck Snyder Primary Care Provider: Care Physician,No Primary Consulting Providers: Nathan Walters Instructions Additional Instructions / Restrictions: * Given your pending COVID antibody test, we recommend you quarantine for 20 days from the start of your symptoms. * Your quarantine will be complete on June 07, 2021, which is 20 days from the start of your symptoms. * Recommend getting COVID shot in one month. * Eliquis: Take 10mg (2 tablets) twice daily for 4 days, then take 5mg (1 tablet) twice daily thereafter. Discharge Orders/Prescriptions Prescriptions: New Eliquis DVT-PE Treat 30D Start 5 mg (74 tabs) tablets,dose pack 5 mg PO BID Qty: 74 RF: 0 azithromycin [Zithromax] 500 mg tablet 500 mg PO DAILY 5 Days Qty: 5 RF: 0 Referrals / Follow Up: Marifer Edwards MD [STAFF PHYSICIAN] - See Referral Note (Referral made to establish primary care. ) Disposition Disposition (needs filled in before D/C Order can be placed): Home, Self Care
[2021-05-25] MEDS: Acetaminophen 325 MG Tablet 650 MG PO (13:44)
--- NOTE | 2021-05-25 14:37 | PCM.DC.SUM ---
Documented by User: Scot MCCAULEY 05/25/21 15:13 Providers Date of Admission: 05/24/21 Primary Care Physician: Ambar Primary Care Phys Consultations 05/24/21 08:26 Consult: Infectious Disease Routine Consulting Provider: Nathan Walters Reason for Consult: B/L PNEUMONIA ON CT Chest, suspicion of covid EMERGENT Consult: No MD Notified: Yes Date Notified: 05/24/21 Time Notified: 08:26 Method of Notification: Text Reason For Visit: PE, PNA Diagnosis Discharge Diagnosis (1) Respiratory failure with hypoxia: Status: Acute Code(s): J96.91 - Respiratory failure, unspecified with hypoxia Qualifiers: Chronicity: acute Qualified Code(s): J96.01 - Acute respiratory failure with hypoxia (2) Pulmonary embolism: Status: Acute Code(s): I26.99 - Other pulmonary embolism without acute cor pulmonale Qualifiers: Acute cor pulmonale presence: unspecified Chronicity: acute Pulmonary embolism type: unspecified Qualified Code(s): I26.99 - Other pulmonary embolism without acute cor pulmonale Medications at Discharge Home Medications apixaban [Eliquis DVT-PE Treat 30D Start] 5 mg PO BID #74 tab 05/25/21 azithromycin [Zithromax] 500 mg PO DAILY 5 Days #5 tab 05/25/21 guaifenesin [Mucus Relief ER] 1,200 mg PO BID #14 tab 05/25/21 Hospital Course Summary of Care Provided Minutes Spent on Discharge: 20 Hospital Course: Patient is a 70-year-old female who was admitted to [facility] on 05/23/2021 for evaluation and management of bilateral PE and community-acquired pneumonia. Hospital course and management as below. 1) acute hypoxic respiratory failure secondary to bilateral PE and Pneumonia. CT on admission demonstrated pulmonary embolism as well as bilateral pulmonary infiltrates, CT also concerning for possible groundglass opacities or fibrotic changes. Covid PCR negative, Legionella and strep pneumo urinary antigens negative, influenza panel negative, viral respiratory panel negative. Covid IgG was positive, IgM pending. ID consulted. Patient is to continue azithromycin for another 4 days to complete 7-day course, remain in quarantine until June 07, 2021 pending Covid IgM results, continue Eliquis 10 mg twice daily for another 4 days, then transition to 5 mg twice daily thereafter. Referral was put in for Dr. Edwards to establish primary care. 2) hypokalemia Resolved, potassium was 4.0 on day of discharge. Patient seen by Scot Barnes PA-C, under the supervision of Dr. Snyder. Physical Exam Narrative Patient is a 70-year-old female comfortably resting in a chair, alert and orient x3. Patient reports that her shortness of breath has resolved, although does report that she developed some chest discomfort with ambulation. Does not appear in acute distress. Const alert, oriented x3 and no apparent distress HEENT normocephalic, head/scalp atraumatic and hearing grossly normal bilaterally Eyes PERRL and conjunctivae normal Neck no lymphadenopathy, supple and no JVD Resp normal respiratory effort, no retractions and no use of accessory muscles Cardio regular rate, regular rhythm and no JVD GI normal to inspection, nondistended, normoactive bowel sounds Extremity normal to inspection Skin no rashes or lesions noted and no wounds Neuro CN's II-XII intact bilaterally Psych affect normal Weight / BMI Weight Weight: 186 lb 4.65 oz Body Mass Index (BMI) 28.3 ABG / Lab / Microbiology Data Result Diagrams: 05/25/21 05:47 05/25/21 05:47 Laboratory: Laboratory Results - last 24 hr 05/24/21 04:50: B-Natriuretic Peptide 50.3 05/25/21 05:47: WBC 13.8 H, RBC 4.40, Hgb 13.5, Hct 39.4, MCV 89.5, MCH 30.7, MCHC 34.3, RDW Std Deviation 41.1, RDW Coeff of Jose 12.5, Plt Count 408, MPV 9.2, Immature Gran % (Auto) 0.700, Neut % (Auto) 84.9 H, Lymph % (Auto) 8.8 L, [place] % (Auto) 5.5, Eos % (Auto) 0.0, Baso % (Auto) 0.1, Absolute Neuts (auto) 11.7 H, Absolute Lymphs (auto) 1.21, Nucleated RBC % 0 05/25/21 05:47: Sodium 140, Potassium 4.0, Chloride 108 H, Carbon Dioxide 27.0, Anion Gap 5, BUN 27 H, Creatinine 0.62, Estim Creat Clear Calc 51.30, Est GFR (MDRD) Af Amer 120, Est GFR (MDRD) Non-Af 99, BUN/Creatinine Ratio 43.2 H, Glucose 104, Calcium 8.2 L 05/25/21 05:54: Troponin I High Sens 9 05/25/21 12:06: Troponin I High Sens 11 Microbiology: Microbiology 05/23/21 15:10 Blood Culture (Wb) - Anticubital Left Blood Culture - Preliminary No growth in 48 hours. 05/24/21 11:22 Mucosa - Nose Respiratory Panel (PCR) - Final 05/24/21 11:30 Urine, Clean Catch Legionella Antigen - Final 05/24/21 11:30 Urine, Clean Catch Streptococcus pneumoniae Antigen (M - Final 05/23/21 16:10 Mucosa - Nasopharyngeal Influenza Types A,B Direct FA (JANNET) - Final 05/23/21 15:00 Nasal Secretion SARS-CoV-2 Antigen (Rapid) - Final D/C Instructions Discharge Diet: No restrictions Weight Bearing Status: Weight bearing as tolerated Call your doctor if you observe: Fever of 101 or Higher, Numbness or Tingling, Shortness of breath, Dizziness, Chest pain, Increased palpitations (irregular heartbeat) and Calf discomfort Please Follow Up With: Primary care provider When: Within the next two weeks. Meaningful Use Info Meaningful Use Diagnoses (Choose all that apply): VTE VTE Anticoag overlap given w/in hospital stay or rx'd at ms?: Yes Pt receive overlap for 5 days?: Yes Discharge Plan Admission Admit Date/Time: 05/24/21 13:29 Primary Reason for Your Visit: Shortness of breath Attending Provider: Chuck Snyder Primary Care Provider: Care Physician,No Primary Consulting Providers: Nathan Walters Instructions Additional Instructions / Restrictions: * Given your pending COVID antibody test, we recommend you quarantine for 20 days from the start of your symptoms. * Your quarantine will be complete on June 07, 2021, which is 20 days from the start of your symptoms. * Recommend getting COVID shot in one month. * Eliquis: Take 10mg (2 tablets) twice daily for 4 days, then take 5mg (1 tablet) twice daily thereafter. Discharge Orders/Prescriptions Prescriptions: New Eliquis DVT-PE Treat 30D Start 5 mg (74 tabs) tablets,dose pack 5 mg PO BID Qty: 74 RF: 0 azithromycin [Zithromax] 500 mg tablet 500 mg PO DAILY 5 Days Qty: 5 RF: 0 Mucus Relief ER 1,200 mg Tablet Extended Release 12hr 1,200 mg PO BID Qty: 14 RF: 0 Referrals / Follow Up: Marifer Edwards MD [STAFF PHYSICIAN] - See Referral Note (Referral made to establish primary care. ) Disposition Disposition (needs filled in before D/C Order can be placed): Home, Self Care Documented by User: Dr. Chuck Snyder MD 05/25/21 15:42 Providers Date of Admission: 05/24/21 Date of Discharge: 05/25/21 Reason For Visit: PE, PNA Medications at Discharge Home Medications apixaban [Eliquis DVT-PE Treat 30D Start] 5 mg PO BID #74 tab 05/25/21 azithromycin [Zithromax] 500 mg PO DAILY 5 Days #5 tab 05/25/21 guaifenesin [Mucus Relief ER] 1,200 mg PO BID #14 tab 05/25/21 Hospital Course Summary of Care Provided Hospital Course: This patient was seen in conjunction with PARISA Horvath. I have independently interviewed and examined the patient and reviewed pertinent history, examination findings, laboratory and plan of management. I have reviewed the note and agree with the documented findings with the few additional points. In brief, patient is 70-year-old female admitted for 5 days symptoms of cough, clear sputum and malaise and chest x-ray CT findings suggestive of bilateral lower lobe pneumonia and right main pulmonary artery embolism with segmental extension. Patient is on therapeutic dose of apixaban. Empirically on azithromycin. Rapid COVID-19 antigen, PCR, urinary antigens, influenza panel and viral respiratory panel are negative. ID consult appreciated. SARS-CoV-2 IgG elevated. IgM pending. Solu-Medrol changed to dexamethasone. On 05/25, ID follow-up appreciated. Discussed with ID and no need for dexamethasone as she is not hypoxic and no significant pulmonary symptoms. Advised to follow IgM SARS Covid 2 antibody with PCP. Advised to self quarantine for 3 weeks from start of the symptoms on 05/18/2021. Advised COVID-19 vaccination after 1 month. Discharged on Eliquis 10 mg p.o. twice daily for 4 more days and then 5 mg twice daily to continue at least for 3 months but 6 months preferable. Patient denies history of smoking, chronic lung disease including COPD, emphysema, asthma, interstitial lung disease or prior pneumonia. Mild hypokalemia, potassium replaced. Repeat potassium normal Discharge medication reconciliation done. Discharge follow-up instructions completed. Discharge process discussed with the patient and all questions were answered to patient's satisfaction. Total time spent, exact 35 minutes on discharge meds reconciliation, examination, coordination of care with nurses and ancillary staff, review of imaging and blood test and discussion with the patient on follow-up instructions. Out of total 35 minutes, PARISA Mariee spent 15 minutes and I spent 20 minutes. I have discussed my assessment with PARISA Horvath and orders have been reviewed. Physical Exam Narrative Seen and examined Patient currently on room air. Hypoxia resolved. Minimal cough.No shortness of breath. General: Alert, Oriented x3, Cooperative HEENT: Atraumatic, PERRLA, EOMI, Normocephalic Oral: No Gingival or Mucosal Lesions/ Ulcerations Neck: Supple, No JVD, Negative Carotid Bruits Lungs: Air entry diminished in bilateral lung bases. Crepitation/rhonchi. Hypoxia resolved. Cardiovascular: Interimittent sinus tachycardia, normal S1, Normal S2, No murmurs Abdomen: Bowel Sounds Present, Soft, Non Tender, Non-Distended : No renal angle tenderness. No suprapubic tenderness. Extremities: No edema, Capillary Refill Less than 3 Seconds Skin: No rashes, No breakdown Musculoskeletal: No Tenderness to Palpation of Joints or Extremities Neurological: Cranial nerves II-XII grossly intact, DTR 2+/4 and Symmetrical, Neuro grossly intact Psych/Mental Status: Normal Affect, Appropriate. ABG / Lab / Microbiology Data Result Diagrams: 05/25/21 05:47 05/25/21 05:47 Discharge Plan Admission Admit Date/Time: 05/24/21 13:29 Primary Reason for Your Visit: Shortness of breath Attending Provider: Chuck Snyder Primary Care Provider: Care Physician,No Primary Consulting Providers: Nathan Walters Instructions Additional Instructions / Restrictions: * Given your pending COVID antibody test, we recommend you quarantine for 20 days from the start of your symptoms. * Your quarantine will be complete on June 07, 2021, which is 20 days from the start of your symptoms. * Recommend getting COVID shot in one month. * Eliquis: Take 10mg (2 tablets) twice daily for 4 days, then take 5mg (1 tablet) twice daily thereafter. Discharge Orders/Prescriptions Prescriptions: New Eliquis DVT-PE Treat 30D Start 5 mg (74 tabs) tablets,dose pack 5 mg PO BID Qty: 74 RF: 0 azithromycin [Zithromax] 500 mg tablet 500 mg PO DAILY 5 Days Qty: 5 RF: 0 Mucus Relief ER 1,200 mg Tablet Extended Release 12hr 1,200 mg PO BID Qty: 14 RF: 0 Referrals / Follow Up: Marifer Edwards MD [STAFF PHYSICIAN] - See Referral Note (Referral made to establish primary care. ) Disposition Disposition (needs filled in before D/C Order can be placed): Home, Self Care Charges/Coding Visit Charges Inpatient E&M: 88675 Disch Hosp
[2021-05-25 18:18] LABS: SAR-COV-2 IGM ANTIBODY Positive (Negative)
== END 2021-05-25 15:45 | disposition home or self-care (01) | DRG 177 ==
LOC: ED 20:35 → PCU 20:40
PROVIDERS: Nurse Practitioner Family; Physician Assistant; Admitting Provider Family Medicine; Emergency Provider Emergency Medicine; Visit Provider Internal Medicine
DX: U07.1 COVID-19 (principal); I26.99 Other pulmonary embolism without acute cor pulmonale; J96.01 Acute respiratory failure with hypoxia; J12.82 Pneumonia due to coronavirus disease 2019; E87.6 Hypokalemia; Z23 Encounter for immunization
CPT/HCPCS: 36415; 71045; 71275; 80048; 83605; 83880; 84484; 85025; 86769; 87040; 87426; 87449; 87633; 87635; 87804; 93005; 94640; 97161; 97166; 99251; 99285; J7050; Q9967; 90686; A4216; G0463; U0003; U0005

== ENCOUNTER → 2021-08-18 | Outpatient (CLI) | payer BC, SELFPAY ==
[2021-08-18 12:36] LABS: Vitamin B12 367 pg/mL (211-911); Vitamin D,25 Hydroxy 14.6 ng/mL
[2021-08-18 12:54] LABS: Cholesterol 189 mg/dL (200); Free T3 2.6 pg/mL (2.18-3.98); High Density Lipoprotein 49 mg/dL; T4 Free Direct 0.87 ng/dL (0.76-1.46); Triglycerides 103 mg/dL; Very Low Density Lipoprotein 21 mg/dL (5-40)
== END | disposition home or self-care (01) ==
LOC: BIMLAB 09:06
PROVIDERS: PCP Internal Medicine; Referring Provider Internal Medicine; Visit Provider Internal Medicine
DX: R53.83 Other fatigue (principal); E55.9 Vitamin D deficiency, unspecified; Z13.220 Encounter for screening for lipoid disorders
CPT/HCPCS: 36415; 80061; 82306; 82607; 84439; 84443; 84481

== ENCOUNTER → 2021-09-27 | Outpatient (CLI) | payer BC, SELFPAY ==
--- NOTE | 2021-09-27 08:23 | BI_ITS ---
MAMMOGRAPHY - BILATERAL SCREENING REASON FOR EXAM: Female, 71 years old. Routine annual screening examination. PERTINENT HISTORY: Non-contributory. TECHNIQUE: Digital bilateral breast warren (3D mammographic acquisition) in the CC and MLO projections. 2-D mediolateral oblique (MLO) and craniocaudad (CC) views of both breasts were obtained. CAD: Full Field Digital Mammography with Computer Added Detection was performed. COMPARISON: Comparison is made with prior study dated 09/17/2013. FINDINGS: Breast Composition: The breasts are heterogeneously dense, which may obscure small masses. There are no dominant masses or suspicious calcifications. No other significant abnormalities are identified. There has been no significant change since the prior study. BI/SCRN MAMM (CAD)W/WARREN BILAT IMPRESSION: Stable bilateral screening mammogram. Yearly follow-up mammogram recommended. (A) ASSESSMENT CATEGORY: BIRADS Category 1: Negative. A letter regarding these results will be sent to the patient by the facility within 30 days. Approximately 10% of breast cancers are not detected by mammography. A normal mammogram should not delay biopsy of a clinically suspicious abnormality. [id number] Electronically Signed: Parish Draper MD at 9:22 EDT ,
== END | disposition home or self-care (01) ==
LOC: OPBI 08:22
PROVIDERS: PCP Internal Medicine; Referring Provider Internal Medicine; Visit Provider Internal Medicine
DX: Z12.31 Encounter for screening mammogram for malignant neoplasm of breast (principal)
CPT/HCPCS: 77063; 77067